=== PATIENT | male | born 1990 | race Caucasian/White ===

== ENCOUNTER 2016-08-05 03:36 | Inpatient (IN) | payer SELFPAY ==
[2016-08-05] VITALS (14 sets, daily range): BP systolic 95–125; BP diastolic 44–97
[~2016-08-05] VITALS: Ht 177.8 cm; Wt 96.2 kg
[~2016-08-05 03:36] MED LIST: ALTACE10 M1 PO; ALTACE10 MG PO; CORTISPORIN OTI10 ML AD; FLEXERIL PO; HUMALOG100 MG/ML SC; LANTUS100 MG/ML SC; NASONEX50 MCG/AC; NORCO1 TA1 PO; NOVOLIN N1 ML SC; NOVOLOG SC; ULTRAM50 M1 PO; ZITHROMAX250 MG OR; ZOFRAN ODT8 MG SL; ZOVIRAX800 MG PO
[2016-08-05] MEDS ORDERED: LEVEMIR100 UNIT/M SC (03:49)
[2016-08-05 04:25] LABS: HEMOGLOBIN 16.5 g/dl (14.0-18.0); IMMATURE GRANULOCYTES 0.2 % (0.0-1.0); MEAN CELL VOLUME 89.7 fL CALC (80.0-100.0); MEAN CORPUSCULAR HGB 30.8 pG CALC (26.0-32.0); MEAN CORPUSCULAR HGB CONC 34.4 g/L CALC (32.0-36.0); NEUT# 11.63 thou/uL (1.82-7.42); RED BLOOD COUNT 5.35 mill/uL (4.70-6.10); RED CELL DISTRI WIDTH 11.5 % (11.5-15.5)
[2016-08-05 04:40] LABS: ALBUMIN 4.6 g/dL (3.2-5.0); ALKALINE PHOSPHATASE 118 u/l (38-126); AMYLASE < 30 u/l (30-110); ANION GAP 22 (6-22 (CALC)); BILIRUBIN, TOTAL 0.9 mg/dL (0.0-1.4); BUN 17 mg/dL (9-20); BUN/CREATININE RATIO 22 (12-20 (CALC)); CARBON DIOXIDE 20 mmol/l (22-30); CHLORIDE 100 mmol/l (95-108); CREATININE 0.8 mg/dL (0.7-1.3); GFR > 60 ML/MIN (>=60 (CALC)); GFR FOR AFR.AMER. > 60 ML/MIN (>=60 (CALC)); GLUCOSE 329 mg/dL (75-110); LIPASE 37 u/l (23-300); SGOT/AST 27 u/l (17-59); SGPT/ALT 35 u/l (21-72); SODIUM 137 mmol/l (137-146); TOTAL PROTEIN 7.9 g/dL (6.3-8.2)
[2016-08-05 04:43] LABS: POTASSIUM 5.3 mmol/l (3.5-5.1)
[2016-08-05 05:00] LABS: URINE BILIRUBIN - DIPSTICK NEGATIVE (NEGATIVE); URINE BLOOD DIPSTICK NEGATIVE (NEGATIVE); URINE CLARITY CLEAR; URINE COLOR YELLOW; URINE GLUCOSE - DIPSTICK 500 mg/dL (NEGATIVE); URINE KETONE >=80 mg/dL (NEGATIVE); URINE LEUK ESTERASE NEGATIVE (NEGATIVE); URINE NITRITE - DIPSTICK NEGATIVE (Negative); URINE PROTEIN - DIPSTICK NEGATIVE (NEG-TRACE); URINE SPECIFIC GRAVITY 1.025; URINE UROBILINOGEN - DIPSTICK 0.2 E.U./dL (0.2)
[2016-08-05 06:05] LABS: BARBITURATES NEGATIVE (NEGATIVE); COCAINE NEGATIVE (NEGATIVE); METHADONE NEGATIVE (NEGATIVE); OXCYCODONE NEGATIVE (NEGATIVE); TETRAHYDROCANNABIONOL NEGATIVE (NEGATIVE); TRICYLIC ANTIDEPRESSANTS NEGATIVE (NEGATIVE)
[2016-08-05 09:28] LABS: POTASSIUM 4.4 mmol/l (3.5-5.1)
[2016-08-06 00:10] VITALS: BP 107/52
[2016-08-06 02:00] VITALS: BP 116/63
[2016-08-06 04:00] VITALS: BP 123/52
[2016-08-06 04:45] LABS: HEMATOCRIT 41.4 % (39.0-50.0); HEMOGLOBIN 14.2 g/dl (14.0-18.0); IMMATURE GRANULOCYTES 0.2 % (0.0-1.0); MEAN CELL VOLUME 90.2 fL CALC (80.0-100.0); MEAN CORPUSCULAR HGB 30.9 pG CALC (26.0-32.0); MEAN CORPUSCULAR HGB CONC 34.3 g/L CALC (32.0-36.0); NEUT# 4.01 thou/uL (1.82-7.42); RED BLOOD COUNT 4.59 mill/uL (4.70-6.10); RED CELL DISTRI WIDTH 11.8 % (11.5-15.5)
[2016-08-06 04:57] LABS: ANION GAP 12 (6-22 (CALC)); BUN 14 mg/dL (9-20); BUN/CREATININE RATIO 19 (12-20 (CALC)); CALCIUM 8.9 mg/dL (8.4-10.2); CARBON DIOXIDE 24 mmol/l (22-30); CHLORIDE 106 mmol/l (95-108); CREATININE 0.7 mg/dL (0.7-1.3); GFR > 60 ML/MIN (>=60 (CALC)); GFR FOR AFR.AMER. > 60 ML/MIN (>=60 (CALC)); GLUCOSE 208 mg/dL (75-110); POTASSIUM 3.8 mmol/l (3.5-5.1); SODIUM 137 mmol/l (137-146)
[2016-08-06 06:00] VITALS: BP 117/65
[2016-08-06 08:00] VITALS: BP 98/71
== END 2016-08-06 09:30 | disposition home or self-care (01) | DRG 639 ==
LOC: ENPENDDIS → ED 03:36 → ED-I 05:43 → ED 05:49 → ICU 05:50
PROVIDERS: Emergency Medicine; Internal Medicine; ADMIT Internal Medicine; ATTEND Internal Medicine
DX: E10.10 Type 1 diabetes mellitus with ketoacidosis without coma (principal); F32.9 Major depressive disorder, single episode, unspecified; K52.9 Noninfective gastroenteritis and colitis, unspecified; F41.9 Anxiety disorder, unspecified; Z79.4 Long term (current) use of insulin
CPT/HCPCS: J1650

== ENCOUNTER 2017-01-06 16:01 | Emergency (ER) | payer SELFPAY ==
[~2017-01-06] VITALS: Ht 177.8 cm; Wt 102.0 kg
[~2017-01-06 16:01] MED LIST changes: +LEVEMIR100 UNIT/M SC
[2017-01-06] MEDS ORDERED: VENTOLIN HFA IN (17:45)
[2017-01-06] MEDS ORDERED: PREDNISONE20 MG PO (17:45)
[2017-01-06] MEDS ORDERED: ZITHROMAX250 MG PO (17:45)
[2017-01-06 18:19] LABS: INFLUENZA A NONE DETECTED (NONE DETECT); INFLUENZA B NONE DETECTED (NONE DETECT)
[2017-01-06 18:40] VITALS: BP 138/75
== END 2017-01-06 18:40 | disposition home or self-care (01) | DRG 203 ==
LOC: ED 16:01
PROVIDERS: Emergency Medicine
DX: J45.901 Unspecified asthma with (acute) exacerbation (principal); E11.9 Type 2 diabetes mellitus without complications; I10 Essential (primary) hypertension; J06.9 Acute upper respiratory infection, unspecified

== ENCOUNTER 2017-02-18 03:15 | Emergency (ER) | payer SELFPAY ==
[~2017-02-18] VITALS: Ht 177.8 cm; Wt 109.8 kg
[~2017-02-18 03:15] MED LIST changes: +PREDNISONE20 MG PO; +VENTOLIN HFA IN; +ZITHROMAX250 MG PO
--- NOTE | 2017-02-18 03:54 | NUR ---
BREATHING TREATMENT GIVEN BACK TO BACK. BREATHING TECH. FOR GOOD DEPOSITION TO THE LUNGS.
[2017-02-18 04:14] LABS: HEMATOCRIT 45.9 % (39.0-50.0); HEMOGLOBIN 15.9 g/dl (14.0-18.0); IMMATURE GRANULOCYTES 0.2 % (0.0-1.0); MEAN CELL VOLUME 88.6 fL CALC (80.0-100.0); MEAN CORPUSCULAR HGB 30.7 pG CALC (26.0-32.0); MEAN CORPUSCULAR HGB CONC 34.6 g/L CALC (32.0-36.0); NEUT# 3.71 thou/uL (1.82-7.42); RED BLOOD COUNT 5.18 mill/uL (4.70-6.10); RED CELL DISTRI WIDTH 11.9 % (11.5-15.5)
[2017-02-18 04:19] LABS: ALBUMIN 4.4 g/dL (3.2-5.0); ALKALINE PHOSPHATASE 113 u/l (38-126); ANION GAP 17 (6-22 (CALC)); BILIRUBIN, TOTAL 0.6 mg/dL (0.0-1.4); BUN 10 mg/dL (9-20); BUN/CREATININE RATIO 14 (12-20 (CALC)); CALCIUM 9.8 mg/dL (8.4-10.2); CARBON DIOXIDE 25 mmol/l (22-30); CHLORIDE 107 mmol/l (95-108); CREATININE 0.8 mg/dL (0.7-1.3); GFR > 60 ML/MIN (>=60 (CALC)); GFR FOR AFR.AMER. > 60 ML/MIN (>=60 (CALC)); GLUCOSE 71 mg/dL (75-110); POTASSIUM 4.5 mmol/l (3.5-5.1); SGOT/AST 27 u/l (17-59); SGPT/ALT 32 u/l (21-72); SODIUM 145 mmol/l (137-146); TOTAL PROTEIN 7.5 g/dL (6.3-8.2)
[2017-02-18] MEDS ORDERED: ZPAK PO (04:57)
[2017-02-18] MEDS ORDERED: MEDDOSEPAK PO (04:57)
[2017-02-18 05:07] LABS: INFLUENZA A NONE DETECTED (NONE DETECT); INFLUENZA B NONE DETECTED (NONE DETECT)
[2017-02-18 05:15] VITALS: BP 124/62
== END 2017-02-18 05:26 | disposition home or self-care (01) | DRG 203 ==
LOC: ED 03:15
PROVIDERS: Emergency Medicine
DX: J45.901 Unspecified asthma with (acute) exacerbation (principal); J02.0 Streptococcal pharyngitis; R06.02 Shortness of breath

== ENCOUNTER 2017-02-19 11:14 | Observation (INO) | payer SELFPAY ==
[~2017-02-19] VITALS: Ht 177.8 cm; Wt 108.9 kg
[~2017-02-19 11:14] MED LIST changes: +MEDDOSEPAK PO; +ZPAK PO
[2017-02-19 12:22] LABS: HEMATOCRIT 43.1 % (39.0-50.0); HEMOGLOBIN 14.8 g/dl (14.0-18.0); MEAN CORPUSCULAR HGB 30.9 pG CALC (26.0-32.0); MEAN CORPUSCULAR HGB CONC 34.3 g/L CALC (32.0-36.0); RED BLOOD COUNT 4.79 mill/uL (4.70-6.10)
[2017-02-19 12:24] LABS: NEUT# 12.39 thou/uL (1.82-7.42)
[2017-02-19 12:35] LABS: ALKALINE PHOSPHATASE 113 u/l (38-126); ANION GAP 18 (6-22 (CALC)); BILIRUBIN, TOTAL 0.7 mg/dL (0.0-1.4); BUN 17 mg/dL (9-20); BUN/CREATININE RATIO 19 (12-20 (CALC)); CALCIUM 8.9 mg/dL (8.4-10.2); CARBON DIOXIDE 22 mmol/l (22-30); CHLORIDE 103 mmol/l (95-108); CREATININE 0.9 mg/dL (0.7-1.3); GFR > 60 ML/MIN (>=60 (CALC)); GFR FOR AFR.AMER. > 60 ML/MIN (>=60 (CALC)); SGOT/AST 24 u/l (17-59); SGPT/ALT 34 u/l (21-72); SODIUM 137 mmol/l (137-146); TOTAL PROTEIN 6.8 g/dL (6.3-8.2)
[2017-02-19 12:45] LABS: MYOGLOBIN 54 ng/mL (0 - 121)
[2017-02-19 12:52] LABS: GLUCOSE 505 mg/dL (75-110); POTASSIUM 5.9 mmol/l (3.5-5.1)
[2017-02-19 15:02] VITALS: BP 146/81
[2017-02-19 18:53] VITALS: BP 138/75
[2017-02-19 23:55] VITALS: BP 141/85
[2017-02-20 00:41] LABS: BARBITURATES NEGATIVE (NEGATIVE); COCAINE NEGATIVE (NEGATIVE); METHADONE NEGATIVE (NEGATIVE); OXCYCODONE NEGATIVE (NEGATIVE); TETRAHYDROCANNABIONOL NEGATIVE (NEGATIVE); TRICYLIC ANTIDEPRESSANTS NEGATIVE (NEGATIVE); URINE BILIRUBIN - DIPSTICK NEGATIVE (NEGATIVE); URINE BLOOD DIPSTICK NEGATIVE (NEGATIVE); URINE CLARITY CLEAR; URINE COLOR YELLOW; URINE GLUCOSE - DIPSTICK >=1000 mg/dL (NEGATIVE); URINE KETONE NEGATIVE (NEGATIVE); URINE LEUK ESTERASE NEGATIVE (NEGATIVE); URINE NITRITE - DIPSTICK NEGATIVE (Negative); URINE PROTEIN - DIPSTICK NEGATIVE (NEG-TRACE); URINE SPECIFIC GRAVITY 1.015; URINE UROBILINOGEN - DIPSTICK 0.2 E.U./dL (0.2)
[2017-02-20 04:35] VITALS: BP 134/61
[2017-02-20 06:08] LABS: HEMATOCRIT 41.7 % (39.0-50.0); HEMOGLOBIN 14.4 g/dl (14.0-18.0); IMMATURE GRANULOCYTES 0.5 % (0.0-1.0); MEAN CELL VOLUME 89.5 fL CALC (80.0-100.0); MEAN CORPUSCULAR HGB 30.9 pG CALC (26.0-32.0); MEAN CORPUSCULAR HGB CONC 34.5 g/L CALC (32.0-36.0); NEUT# 15.11 thou/uL (1.82-7.42); RED BLOOD COUNT 4.66 mill/uL (4.70-6.10); RED CELL DISTRI WIDTH 11.9 % (11.5-15.5)
[2017-02-20 06:31] LABS: ANION GAP 15 (6-22 (CALC)); BUN 14 mg/dL (9-20); BUN/CREATININE RATIO 23 (12-20 (CALC)); CALCIUM 9.6 mg/dL (8.4-10.2); CARBON DIOXIDE 23 mmol/l (22-30); CHLORIDE 107 mmol/l (95-108); CREATININE 0.6 mg/dL (0.7-1.3); GFR > 60 ML/MIN (>=60 (CALC)); GFR FOR AFR.AMER. > 60 ML/MIN (>=60 (CALC)); GLUCOSE 132 mg/dL (75-110); POTASSIUM 4.2 mmol/l (3.5-5.1); SODIUM 141 mmol/l (137-146)
[2017-02-20 07:24] LABS: MAGNESIUM 1.9 mg/dL (1.6-2.3)
[2017-02-20 08:57] VITALS: BP 124/64
[2017-02-20] MEDS ORDERED: HUMALOG100 UNIT/M SC (11:07)
[2017-02-20] MEDS ORDERED: PREDNISONE10 MG PO (11:07)
[2017-02-20 11:08] VITALS: BP 142/70
[2017-02-20] MEDS ORDERED: PROAIR HFA IN (11:14)
[2017-02-20] MEDS ORDERED: METFORMIN500 MG PO (11:14)
== END 2017-02-20 13:35 | disposition home or self-care (01) | DRG 638 ==
LOC: ED 11:14 → ED-I 13:43 → ED 13:56 → MS2 13:57
PROVIDERS: Emergency Medicine; Nurse Practitioner Family; ADMIT Internal Medicine; ATTEND Internal Medicine
DX: E10.65 Type 1 diabetes mellitus with hyperglycemia (principal); J45.901 Unspecified asthma with (acute) exacerbation; E87.5 Hyperkalemia; F32.9 Major depressive disorder, single episode, unspecified; F41.9 Anxiety disorder, unspecified; Z91.14 Patient's other noncompliance with medication regimen; Z79.4 Long term (current) use of insulin
CPT/HCPCS: G0378

== ENCOUNTER 2018-05-05 12:34 | Emergency (ER) | payer SELFPAY ==
[~2018-05-05] VITALS: Ht 177.8 cm; Wt 90.9 kg
[~2018-05-05 12:34] MED LIST changes: +HUMALOG100 UNIT/M SC; +METFORMIN500 MG PO; +PREDNISONE10 MG PO; +PROAIR HFA IN
[2018-05-05] MEDS ORDERED: NOVOLIN R100 UNIT/M (12:54)
[2018-05-05 13:27] LABS: HEMATOCRIT 47.1 % (39.0-50.0); IMMATURE GRANULOCYTES 0.4 % (0.0-5.0); MEAN CELL VOLUME 88.9 fL CALC (80.0-100.0); MEAN CORPUSCULAR HGB 31.5 pG CALC (26.0-32.0); MEAN CORPUSCULAR HGB CONC 35.5 g/L CALC (32.0-36.0); NEUT# 16.34 thou/uL (1.82-7.42); RED BLOOD COUNT 5.3 mill/uL (4.70-6.10); RED CELL DISTRI WIDTH 11.9 % (11.5-15.5)
[2018-05-05 13:35] LABS: HEMOGLOBIN 16.7 g/dl (14.0-18.0)
[2018-05-05 13:44] LABS: ALBUMIN 4.6 g/dL (3.2-5.0); ALKALINE PHOSPHATASE 156 u/l (38-126); BILIRUBIN, TOTAL 1.1 mg/dL (0.0-1.4); BUN 13 mg/dL (9-20); BUN/CREATININE RATIO 20 (12-20 (CALC)); CARBON DIOXIDE 21 mmol/l (22-30); CHLORIDE 101 mmol/l (95-108); CREATININE 0.7 mg/dL (0.7-1.3); GFR > 60 ML/MIN (>=60 (CALC)); GFR FOR AFR.AMER. > 60 ML/MIN (>=60 (CALC)); LIPASE 38 u/l (23-300); SODIUM 136 mmol/l (137-146); TOTAL PROTEIN 7.9 g/dL (6.3-8.2)
[2018-05-05 13:45] LABS: ANION GAP 19 (6-22 (CALC)); POTASSIUM 5.4 mmol/l (3.5-5.1); SGOT/AST 45 u/l (17-59)
[2018-05-05 13:53] LABS: URINE BILIRUBIN - DIPSTICK NEGATIVE (NEGATIVE); URINE BLOOD DIPSTICK NEGATIVE (NEGATIVE); URINE COLOR YELLOW; URINE GLUCOSE - DIPSTICK >=1000 mg/dL (NEGATIVE); URINE KETONE >=80 mg/dL (NEGATIVE); URINE LEUK ESTERASE NEGATIVE (NEGATIVE); URINE NITRITE - DIPSTICK NEGATIVE (Negative); URINE PROTEIN - DIPSTICK NEGATIVE (NEG-TRACE); URINE SPECIFIC GRAVITY 1.015; URINE UROBILINOGEN - DIPSTICK 0.2 E.U./dL (0.2)
[2018-05-05] MEDS ORDERED: TAM75CAP PO (16:38)
[2018-05-05] MEDS ORDERED: ONDANSETRON4 MG PO (16:38)
[2018-05-05 17:00] VITALS: BP 134/62
== END 2018-05-05 17:00 | disposition home or self-care (01) | DRG 639 ==
LOC: ED 12:34
PROVIDERS: Family Medicine
DX: E10.10 Type 1 diabetes mellitus with ketoacidosis without coma (principal); Z79.4 Long term (current) use of insulin; J10.1 Influenza due to other identified influenza virus with other respiratory manifestations; R11.2 Nausea with vomiting, unspecified; R19.7 Diarrhea, unspecified; R10.9 Unspecified abdominal pain; R00.0 Tachycardia, unspecified
CPT/HCPCS: Q9967

== ENCOUNTER 2018-06-18 17:33 | Emergency (ER) | payer SELFPAY ==
[~2018-06-18] VITALS: Ht 180.3 cm; Wt 100.0 kg
[~2018-06-18 17:33] MED LIST changes: +NOVOLIN R100 UNIT/M; +ONDANSETRON4 MG PO; +TAM75CAP PO
[2018-06-18 18:18] LABS: HEMOGLOBIN 15.1 g/dl (14.0-18.0); IMMATURE GRANULOCYTES 0.3 % (0.0-5.0); MEAN CELL VOLUME 89.6 fL CALC (80.0-100.0); MEAN CORPUSCULAR HGB 30.8 pG CALC (26.0-32.0); MEAN CORPUSCULAR HGB CONC 34.3 g/L CALC (32.0-36.0); NEUT# 5.06 thou/uL (1.82-7.42); RED BLOOD COUNT 4.91 mill/uL (4.70-6.10); RED CELL DISTRI WIDTH 12.4 % (11.5-15.5)
[2018-06-18 18:36] LABS: ALBUMIN 4.3 g/dL (3.2-5.0); ALKALINE PHOSPHATASE 117 u/l (38-126); ANION GAP 14 (6-22 (CALC)); BILIRUBIN, TOTAL 0.6 mg/dL (0.0-1.4); BUN 12 mg/dL (9-20); BUN/CREATININE RATIO 18 (12-20 (CALC)); CARBON DIOXIDE 24 mmol/l (22-30); CHLORIDE 105 mmol/l (95-108); CREATININE 0.7 mg/dL (0.7-1.3); GFR > 60 ML/MIN (>=60 (CALC)); GFR FOR AFR.AMER. > 60 ML/MIN (>=60 (CALC)); SGOT/AST 49 u/l (17-59); SODIUM 139 mmol/l (137-146); TOTAL PROTEIN 7.4 g/dL (6.3-8.2)
[2018-06-18 18:40] LABS: POTASSIUM 3.9 mmol/l (3.5-5.1)
[2018-06-18] MEDS ORDERED: ZITHROMAX250 MG PO (18:50)
[2018-06-18] MEDS ORDERED: DELTASONE20 MG PO (18:50)
[2018-06-18] MEDS ORDERED: PROVENTIL108 MCG/AC IN (18:50)
[2018-06-18] MEDS ORDERED: ALBUTEROL SUL0.083 % IN (18:50)
--- NOTE | 2018-06-18 20:24 | NUR ---
BREATHING TREATMENT GIVEN.
[2018-06-18 20:45] VITALS: BP 148/78
== END 2018-06-18 20:45 | disposition home or self-care (01) | DRG 203 ==
LOC: ED 17:33
PROVIDERS: Emergency Medicine
DX: J45.901 Unspecified asthma with (acute) exacerbation (principal); E11.9 Type 2 diabetes mellitus without complications
CPT/HCPCS: J3475

== ENCOUNTER 2019-06-26 | Emergency (ER) | payer SELFPAY ==
[~2019-06-26] MED LIST changes: +ALBUTEROL SUL0.083 % IN; +DELTASONE20 MG PO; +PROVENTIL108 MCG/AC IN
[2019-06-26] MEDS ORDERED: BLOOD PRESSURE MED PO (07:09)
[2019-06-26] MEDS ORDERED: ALLERGY MED PO (07:09)
[2019-06-26] MEDS ORDERED: FLOXIN OTIC0.3 % AS (07:53)
== END 2019-06-26 08:09 | disposition home or self-care (01) | DRG 156 ==
PROC: 3E1B78Z Irrigation of Ear using Irrigating Substance, Via Natural or Artificial Opening (ICD-10-PCS; principal; 2019-06-26)
DX: T16.2XXA Foreign body in left ear, initial encounter (principal); E11.9 Type 2 diabetes mellitus without complications; X58.XXXA Exposure to other specified factors, initial encounter; Z79.4 Long term (current) use of insulin

== ENCOUNTER 2021-01-20 09:02 | Emergency (ER) | payer SELFPAY ==
[~2021-01-20] VITALS: Ht 175.3 cm; Wt 117.9 kg
[~2021-01-20 09:02] MED LIST changes: +ALLERGY MED PO; +BLOOD PRESSURE MED PO; +FLOXIN OTIC0.3 % AS
[2021-01-20] MEDS ORDERED: PREDNISONE50 MG PO (10:15)
[2021-01-20] MEDS ORDERED: PROAIR HFA108 MCG/AC PO (10:15)
[2021-01-20] MEDS ORDERED: ARNUITY EL100 MCG/AC PO (10:17)
[2021-01-20 11:12] VITALS: BP 135/61
== END 2021-01-20 11:12 | disposition home or self-care (01) | DRG 203 ==
LOC: ED 09:02
DX: J45.901 Unspecified asthma with (acute) exacerbation (principal); E11.9 Type 2 diabetes mellitus without complications; Z79.4 Long term (current) use of insulin

== ENCOUNTER 2024-06-27 13:13 | Emergency (ER) | payer SELFPAY ==
[2024-06-27] VITALS (15 sets, daily range): BP systolic 105–130; BP diastolic 51–78
[~2024-06-27] VITALS: Ht 175.3 cm; Wt 111.1 kg
[~2024-06-27 13:13] MED LIST changes: +ARNUITY EL100 MCG/AC PO; +PREDNISONE50 MG PO; +PROAIR HFA108 MCG/AC PO
[2024-06-27] MEDS ORDERED: ASPIRIN 81 MG/TAB PO ONE (13:30)
[2024-06-27] MEDS ORDERED: NITROGLYCERIN 0.4 MG/TAB SL ONE (13:30)
[2024-06-27 13:40] LABS: BASO% 0.5 % (0-3); EOS% 2.6 % (0-8); HEMATOCRIT 47.1 % (39.0-50.0); HEMOGLOBIN 15.2 g/dl (14.0-18.0); IMMATURE GRANULOCYTES 0.1 % (0.0-5.0); LYMPH% 33.3 % (15-41); MEAN CELL VOLUME 88.5 fL CALC (80.0-100.0); MEAN CORPUSCULAR HGB 28.6 pG CALC (26.0-32.0); MEAN CORPUSCULAR HGB CONC 32.3 g/dL CAL (32.0-36.0); MONO% 12.1 % (2-13); NEUT# 4.15 thou/uL (1.82-7.42); NEUT% 51.4 % (42-76); RED BLOOD COUNT 5.32 mill/uL (4.70-6.10); RED CELL DISTRI WIDTH 12.9 % (11.5-15.5)
[2024-06-27 13:56] LABS: ALBUMIN 4.2 g/dL (3.2-5.0); ALKALINE PHOSPHATASE 109 u/l (38-126); ANION GAP 11 (6-22 (CALC)); BUN 21 mg/dL (9-20); BUN/CREATININE RATIO 23 (12-20 (CALC)); CARBON DIOXIDE 26 mmol/l (22-30); CHLORIDE 105 mmol/l (95-108); CREATININE 0.9 mg/dL (0.7-1.3); ESTIMATED GFR 117 ML/MIN (>=90 (CALC)); POTASSIUM 4.5 mmol/l (3.5-5.1); SGOT/AST 29 u/l (17-59); SODIUM 137 mmol/l (137-146); TOTAL PROTEIN 7.2 g/dL (6.3-8.2)
[2024-06-27 14:01] LABS: BILIRUBIN, TOTAL 0.7 mg/dL (0.2-1.3)
[2024-06-27 14:05] LABS: INTERNATIONAL NORMALIZED RATIO 0.9 RATIO (0.7-1.3)
[2024-06-27 14:17] LABS: PROTHROMBIN TIME 9.9 SECONDS (9.0-12.5)
[2024-06-27 14:18] LABS: D-DIMER < 0.19 mg/L (0.19-0.60)
== END 2024-06-27 16:54 | disposition home or self-care (01) | DRG 313 ==
LOC: ED 13:13
PROVIDERS: Family Medicine
DX: R07.89 Other chest pain (principal); E11.9 Type 2 diabetes mellitus without complications; I25.10 Atherosclerotic heart disease of native coronary artery without angina pectoris; I25.2 Old myocardial infarction; Z95.5 Presence of coronary angioplasty implant and graft; Z79.4 Long term (current) use of insulin